=== PATIENT | female | born 1975 | race Caucasian/White ===

== ENCOUNTER 2016-07-01 17:54 | Emergency (ER) | payer SELFPAY ==
[~2016-07-01] VITALS: Ht 160 cm; Wt 71.0 kg
[2016-07-01 18:06] VITALS: BP 99/53; PULSE 83; RESP 16; TEMP 97.9; O2SAT 100
[2016-07-01 18:27] LABS: BLOOD, URINE LARGE (NEG); GLUCOSE,URINE NEG (NEG); KETONE, URINE NEG (NEG); NITRITE,URINE NEG (NEG); PH, URINE 5.5 (5.0-8.5)
[2016-07-01 18:40] LABS: BACTERIA, URINE FEW /hpf; RBC, URINE 100-200 /hpf (0-3); URINE COLOR YELLOW (YELLW/STRAW)
[2016-07-01 18:41] LABS: COMMENT (UR) CULT NOT INDICATED; CULTURE IF INDICATED CULT NOT INDICATED
== END 2016-07-01 20:00 | disposition left against medical advice (07) ==
LOC: EDBD → PHED 17:54
DX: R31.9 Hematuria, unspecified (principal)
CPT/HCPCS: 81001; 99281